=== PATIENT | male | born 1990 | race Two or more races ===

== ENCOUNTER 2023-06-23 17:32 | Emergency (ER) | payer BC, OTHER ==
[~2023-06-23] VITALS: Ht 175.3 cm; Wt 65.9 kg
[2023-06-23] MEDS ORDERED: fentaNYL CITRATE 100 MCG/2 ML VL IV ONE ×2 (17:45→18:45)
[2023-06-23] MEDS ORDERED: fentaNYL CITRATE 5 ML ONE (17:49)
[2023-06-23 18:00] VITALS: PULSE 94; RESP 13; O2SAT 99
[2023-06-23] MEDS ORDERED: SODIUM CHLORIDE 0.9% 2,100 ML IV ONE (18:00)
[2023-06-23] MEDS ORDERED: SILVER NITRATE-POTAS NITRA STICK TOP ONE (18:00)
[2023-06-23] MEDS ORDERED: BACITRACIN TOP OINT 1 UD PKG TOP ONE (18:15)
[2023-06-23] MEDS ORDERED: SILVER SULFADIAZINE 1 % TOPICAL CREAM 50GM TOP ONE (18:30)
[2023-06-23] MEDS ORDERED: TETANUS-DIPTH-ACEL PERTUSSIS 0.5ML SYR Tdap IM ONE (19:00)
[2023-06-23 19:41] VITALS: TEMP 98.3
[2023-06-23 19:47] VITALS: PULSE 122; RESP 13; O2SAT 99
[2023-06-23 19:57] LABS: Basophils # (auto) 0 10 ^3/uL (0-0.2); Basophils % (auto) 0.2 % (0.0-2.0); Eosinophils # (auto) 0.1 10 ^3/uL (0-0.8); Eosinophils % (auto) 0.7 % (0.0-7.0); Hematocrit 45.5 % (41.0-53.0); Lymphocytes # (auto) 3.9 10 ^3/uL (0.4-5.4); Lymphocytes % (auto) 30.7 % (10.0-50.0); Mean Corpuscular Hemoglobin 30.9 pg (28.0-32.0); Mean Corpuscular Volume 93.7 fL (80.0-100.0); Monocytes # (auto) 0.9 10 ^3/uL (0-1.3); Monocytes % (auto) 7.3 % (0.0-12.0); Neutrophils # (auto) 7.7 10 ^3/uL (1.6-8.6); Neutrophils % (auto) 61.1 % (37.0-80.0); Nucleated Red Blood Cells % 0.2 %; Red Blood Cells 4.85 10^6/uL (4.5-5.90); White Blood Cell 12.7 10^3/uL (4.4-10.8)
[2023-06-23] MEDS ORDERED: TETANUS IMMUNE GLOBULIN 250 UNIT/ML SYRG IM ONE (20:03)
[2023-06-23] MEDS: SODIUM CHLORIDE 0.9% 3,000 ML IV ONE ×2 (20:03→20:08)
[2023-06-23 20:07] VITALS: BP 142/91; PULSE 122; RESP 13
[2023-06-23 20:13] LABS: INR 1.04 (0.9-1.15); Partial Thromboplastin Time 24.6 SEC (24.5-34.5); Prothrombin Time 10.9 sec (9.3-11.8)
[2023-06-23 20:15] LABS: Alanine Aminotransferase 23 U/L (7-40); Albumin 4.7 g/dL (3.2-4.8); Alkaline Phosphatase 77 U/L (46-116); Anion Gap 9 (5-15); Aspartate Aminotransferase 26 U/L (13-40); BUN/Creatinine Ratio 10.8 (10.0-20.0); Bilirubin, Total 0.6 mg/dL (0.2-1.0); Blood Urea Nitrogen 15 mg/dL (9-23); Calcium 9.3 mg/dL (8.7-10.4); Carbon Dioxide 23 mmol/L (20-30); Chloride 108 mmol/L (98-107); Glucose 147 mg/dL (74-106); Potassium 3.8 mmol/L (3.5-5.1); Sodium 140 mmol/L (136-145); Total Protein 7.2 g/dL (5.7-8.2)
[2023-06-23] MEDS ORDERED: NEOMYCIN-BACITRACIN-POLYM 15GM TOP OINT TOP SCH (22:00)
== END 2023-06-23 20:10 | disposition short-term general hospital (02) ==
LOC: ER 17:32
DX: T20.29XA Burn of second degree of multiple sites of head, face, and neck, initial encounter (principal); T21.21XA Burn of second degree of chest wall, initial encounter; T23.202A Burn of second degree of left hand, unspecified site, initial encounter; T31.11 Burns involving 10-19% of body surface with 10-19% third degree burns; F17.210 Nicotine dependence, cigarettes, uncomplicated; F15.90 Other stimulant use, unspecified, uncomplicated; Z86.2 Personal history of diseases of the blood and blood-forming organs and certain disorders involving the immune mechanism; X19.XXXA Contact with other heat and hot substances, initial encounter; Y93.89 Activity, other specified; Y92.89 Other specified places as the place of occurrence of the external cause; Y99.8 Other external cause status
CPT/HCPCS: 16000; 36415; 80053; 85025; 85379; 85610; 85730; 90471; 96361; 96374; 96376; 99285; J1670; J3010; J7030